=== PATIENT | male | born 1955 ===

== ENCOUNTER 2018-09-07 14:38 | Emergency (ER) | payer MEDICAID ==
[2018-09-07 15:06] VITALS: RESP 18; TEMP 98.4
--- NOTE | 2018-09-07 16:37 | C.PDOC ---
History Of Present Illness 63 year old male presents to the ED for a wound check and suture removal. Patient sustained a laceration to the right middle finger on 08/26/18, sutures placed a [facility], and completed course of antibiotics. No other medical complains at this time. Time Seen by Provider: 09/07/18 15:16 Chief Complaint (Nursing): Wound Check History Per: Patient History/Exam Limitations: no limitations Past Medical History Reviewed: Historical Data, Nursing Documentation, Vital Signs Vital Signs: Last Vital Signs Temp 98.4 F 09/07/18 15:03 Pulse 77 09/07/18 15:03 Resp 18 09/07/18 15:03 BP 142/80 09/07/18 15:03 Pulse Ox 99 09/07/18 15:03 Family History: States: Unknown Family Hx - Social History Hx Alcohol Use: Yes (hx of etoh) Hx Substance Use: No - Immunization History Hx Tetanus Toxoid Vaccination: Yes Hx Influenza Vaccination: No Hx Pneumococcal Vaccination: No Physical Exam - Physical Exam Appears: Non-toxic, No Acute Distress Skin: Warm, Dry Extremity: Other (right middle finger: distal tip swollen. mild tenderness. semi-circular well healing laceration. no discharge. no redness.) ED Course And Treatment O2 Sat by Pulse Oximetry: 99 (RA) Pulse Ox Interpretation: Normal Medical Decision Making Medical Decision Making: sutures removed with no difficulty. dressing applied. Progress/Update: Patient stable for discharge home. Disposition - Disposition Disposition: HOME/ ROUTINE Disposition Time: 17:00 Condition: GOOD Additional Instructions: Mantenga los dedos limpios y secos. Las tiras de Steri se caern solas .; seguimiento con suh mdico de atencin primaria en unos pocos kaminski Instructions: Stitches Removal Forms: Gen Discharge Inst Uzbek, [facility] (Uzbek) Print Language: FAROESE - Clinical Impression Clinical Impression: Visit for suture removal - PA / THROUGH OPERATOR / Resident Statement MD/DO has reviewed & agrees with the documentation as recorded. - Scribe Statement The provider has reviewed the documentation as recorded by the Scribe (Kina Antony) All medical record entries made by the Scribe were at my direction and personally dictated by me. I have reviewed the chart and agree that the record accurately reflects my personal performance of the history, physical exam, medical decision making, and the department course for this patient. I have also personally directed, reviewed, and agree with the discharge instructions and disposition.
--- NOTE | 2018-09-07 16:49 | C.PDOC ---
Time Seen by Provider: 09/07/18 15:16 Chief Complaint (Nursing): Wound Check Past Medical History Vital Signs: Last Vital Signs Temp 98.4 F 09/07/18 15:03 Pulse 77 09/07/18 15:03 Resp 18 09/07/18 15:03 BP 142/80 09/07/18 15:03 Pulse Ox 99 09/07/18 16:37 Family History: States: Unknown Family Hx - Social History Hx Alcohol Use: Yes (hx of etoh) Hx Substance Use: No - Immunization History Hx Tetanus Toxoid Vaccination: Yes Hx Influenza Vaccination: No Hx Pneumococcal Vaccination: No ED Course And Treatment O2 Sat by Pulse Oximetry: 99 Medical Decision Making Medical Decision Making: well healing laceration to right middle finger. sutures removed, steroi strips applied. Disposition - Disposition Disposition: HOME/ ROUTINE Disposition Time: 16:49 Condition: GOOD Additional Instructions: Mantenga los dedos limpios y secos. Las tiras de Steri se caern solas .; seguimiento con suh mdico de atencin primaria en unos pocos kaminski Instructions: Stitches Removal Forms: Gen Discharge Inst [place]ankan, [facility] (Sri Lankan) - Clinical Impression Clinical Impression: Visit for suture removal
[2018-09-07 17:03] VITALS: BP 134/68; PULSE 76
[2018-09-07 18:17] VITALS: O2SAT 99
== END 2018-09-07 17:03 | disposition home or self-care (01) ==
LOC: C.ER 14:38
DX: Z48.02 Encounter for removal of sutures (principal)